=== PATIENT | male | born 1975 | race Caucasian/White ===

== ENCOUNTER → 2017-09-27 | Outpatient (REF) ==
[~2017-09-27] MED LIST: CEPH-13 PO; FLUT16SP20 NS; FLUT1DIS28 IH; IBUP800T37 PO; LOR5/325 PO; PENI-24 PO
[2017-09-27 10:27] LABS: LDL CHOLESTEROL 135 mg/dl
== END ==
DX: Z02.9 Encounter for administrative examinations, unspecified (principal)

== ENCOUNTER → 2018-11-15 | Outpatient (REF) ==
[2018-11-15 09:15] LABS: LDL CHOLESTEROL 138 mg/dl
== END ==
DX: Z02.9 Encounter for administrative examinations, unspecified (principal)